=== PATIENT | female | born 1990 | race Caucasian/White ===

== ENCOUNTER → 2018-12-20 | Emergency (ER) | payer OTHER ==
[~2018-12-20] VITALS: Ht 154.9 cm; Wt 65.3 kg
[~2018-12-20] MED LIST: ACET-141 PO; IBUP-1542 PO; METH750T93 PO
[2018-12-20 19:51] VITALS: Ht 154.9 cm; Wt 65.3 kg
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
[2018-12-20 21:58] VITALS: BP 121/74; PULSE 94; RESP 16
== END | disposition home or self-care (01) ==
LOC: FTE 19:44
DX: M54.6 Pain in thoracic spine (principal); M54.2 Cervicalgia
CPT/HCPCS: 99283